=== PATIENT | female | born 1975 | race Caucasian/White ===

== ENCOUNTER 2017-09-14 10:59 | Emergency (ER) | payer BC, MEDICAID ==
[~2017-09-14] VITALS: Ht 172.7 cm; Wt 84.4 kg
[2017-09-14] MEDS ORDERED: PLEASE ENTER ALLERGIES MC SCH (12:00)
[2017-09-14] MEDS ORDERED: KETOROLAC 30 MG/1 ML IM ONE (12:00)
[2017-09-14] MEDS ORDERED: DIAZEPAM 5 MG TABLET PO ONE (12:00)
[2017-09-14] MEDS ORDERED: DIAZEPAM 5 MG TABLET ONE (12:05)
[2017-09-14] MEDS ORDERED: KETOROLAC 30 MG/1 ML ONE (12:05)
[2017-09-14 13:27] VITALS: BP 103/63
== END 2017-09-14 13:24 | disposition home or self-care (01) ==
LOC: ED 11:34
DX: M54.12 Radiculopathy, cervical region (principal)
CPT/HCPCS: 72050; 72072; 73030; 96372; 99284; J1885

== ENCOUNTER 2017-09-27 13:56 | Emergency (ER) | payer MEDICAID ==
[~2017-09-27] VITALS: Ht 175.3 cm; Wt 81.9 kg
[2017-09-27 13:58] VITALS: BP 138/85
[2017-09-27] MEDS ORDERED: HYDROmorphone 2 MG/ML, 1ML ONE (14:58)
[2017-09-27] MEDS ORDERED: DIAZEPAM 5 MG TABLET ONE (14:59)
[2017-09-27] MEDS ORDERED: DIAZEPAM 5 MG TABLET PO ONE (15:00)
[2017-09-27] MEDS ORDERED: HYDROmorphone 1 MG/ML, 1ML IM ONE (15:00)
== END 2017-09-27 16:17 | disposition home or self-care (01) ==
LOC: ED 15:45
DX: M54.2 Cervicalgia (principal); M54.12 Radiculopathy, cervical region
CPT/HCPCS: 96372; 99283; J1170

== ENCOUNTER → 2020-07-20 | Outpatient (CLI) | payer MEDICAID ==
[~2020-07-20] MED LIST: HYDR-3237 PO
== END | disposition home or self-care (01) ==
LOC: STAR 13:48
PROVIDERS: ATTEND Neurological Surgery
DX: Z20.822 Contact with and (suspected) exposure to COVID-19 (principal)
CPT/HCPCS: 87635

== ENCOUNTER 2020-07-26 05:33 | Observation (INO) | payer MEDICAID ==
[~2020-07-26] VITALS: Ht 174 cm; Wt 92.0 kg
[2020-07-26 06:07] VITALS: BP 105/75
[2020-07-26] MEDS ORDERED: EPINEPHRINE 1 MG/ML, 1ML ONE (06:17)
[2020-07-26] MEDS ORDERED: BUPIVACAINE/PF 0.5% ONE (06:17)
[2020-07-26] MEDS ORDERED: BACITRACIN 50,000 UNIT ONE (06:18)
[2020-07-26 06:20] LABS: HCG UR SG 1.031 (1.003-1.030)
[2020-07-26] MEDS ORDERED: CHLORHEXIDINE 15 ML UDC MM ONE (06:30)
[2020-07-26] MEDS ORDERED: LACTATED RINGERS 1,000 ML IV SCH (06:30)
[2020-07-26] MEDS ORDERED: MIDAZOLAM 1 MG/ML, 2ML ONE (06:31)
[2020-07-26] MEDS ORDERED: FENTANYL PF 100 MCG/2ML ONE ×4 (06:31→10:54)
[2020-07-26] MEDS ORDERED: CEFAZOLIN 1,000 MG ONE (06:52)
[2020-07-26] MEDS ORDERED: DEXAMETHASONE 4 MG/ML, 1ML ONE (06:52)
[2020-07-26] MEDS ORDERED: PROPOFOL 10 MG/ML, 20ML ONE (06:52)
[2020-07-26] MEDS ORDERED: ONDANSETRON 2MG/ML, 2ML ONE (06:52)
[2020-07-26] MEDS ORDERED: PROPOFOL 50 ML ONE ×3 (06:53→09:13)
[2020-07-26] MEDS ORDERED: SCOPOLAMINE 1MG PATCH TD SCH (07:00)
[2020-07-26] MEDS ORDERED: ONDANSETRON 2MG/ML, 2ML IVPush PRN (07:30)
[2020-07-26] MEDS ORDERED: PROMETHAZINE 25 MG/ML, 1ML IVPush PRN (07:30)
[2020-07-26] MEDS ORDERED: METHOCARBAMOL 1,000 MG in DEXTROSE 5% 100 ML IV PRN (07:30)
[2020-07-26] MEDS ORDERED: HYDROcodone/APAP 7.5-325MG/15ML UDC PO PRN (07:30)
[2020-07-26] MEDS ORDERED: KETOROLAC 30 MG/1 ML IVPush PRN (07:30)
[2020-07-26] MEDS ORDERED: HYDROmorphone 1 MG/ML, 1ML INJ IVPush PRN (07:30)
[2020-07-26] MEDS ORDERED: MEPERIDINE/PF 25MG/0.5ML IVPush PRN (07:30)
[2020-07-26] MEDS ORDERED: LORazepam 2 MG/ML, 1ML IVPush PRN (07:30)
[2020-07-26] MEDS ORDERED: SUCCINYLCHOLINE 20 MG/ML, 10ML ONE (07:45)
[2020-07-26] MEDS ORDERED: ROCURONIUM 10 MG/ML,10ML ONE (07:45)
[2020-07-26] MEDS ORDERED: HYDROcodone/APAP 7.5-325MG/15ML UDC ONE (10:24)
[2020-07-26] MEDS: FENTANYL PF 100 MCG/2ML IV PRN ×4 (10:27→11:19)
[2020-07-26] MEDS ORDERED: HYDROmorphone 1 MG/ML, 1ML INJ ONE (11:20)
[2020-07-26 11:40] VITALS: BP 103/66
[2020-07-26 12:10] VITALS: BP 94/61
[2020-07-26] MEDS ORDERED: ONDANSETRON 2MG/ML, 2ML IV PRN (12:30)
[2020-07-26] MEDS ORDERED: TIZANIDINE 2MG TABLET PO PRN (12:30)
[2020-07-26] MEDS ORDERED: DIPHENHYDRAMINE 25 MG CAPSULE PO PRN (12:30)
[2020-07-26] MEDS ORDERED: BISACODYL 10 MG SUPP PR PRN (12:30)
[2020-07-26] MEDS ORDERED: DIPHENHYDRAMINE 50 MG/ML, 1ML IVPush PRN (12:30)
[2020-07-26] MEDS ORDERED: OXYcodone IR 5MG TABLET PO PRN (12:30)
[2020-07-26] MEDS ORDERED: morphine SULFATE 10 MG/ML, 1ML IV PRN (12:30)
[2020-07-26] MEDS ORDERED: MAGNESIUM HYDROXIDE 8%, 30ML UDC PO PRN (12:30)
[2020-07-26] MEDS: NS + 20MEQ KCL 1,000 ML IV SCH ×2 (15:55→20:39)
[2020-07-26] MEDS: CEFAZOLIN PMX 1GM/50ML 50 ML IVPB SCH (16:13)
[2020-07-26] MEDS: HYDROcodone/APAP 5/325 TABLET PO PRN ×3 (16:14→21:07)
[2020-07-26 20:21] VITALS: BP 110/72
[2020-07-27 00:15] VITALS: BP 93/55
[2020-07-27] MEDS ORDERED: DIPHENHYDRAMINE 50 MG/ML, 1ML IVPush PRN (00:30)
[2020-07-27] MEDS: CEFAZOLIN PMX 1GM/50ML 50 ML IVPB SCH (00:31)
[2020-07-27] MEDS: HYDROcodone/APAP 5/325 TABLET PO PRN ×4 (01:19→10:57)
[2020-07-27 04:28] VITALS: BP 92/55
[2020-07-27 07:03] VITALS: BP 102/64
[2020-07-27] MEDS ORDERED: HYDR-3237 PO (08:22)
[2020-07-27] MEDS ORDERED: TIZA-106 PO (08:22)
[2020-07-27] MEDS ORDERED: SENNA/DOCUSATE TABLET PO SCH (09:00)
== END 2020-07-27 11:50 | disposition home or self-care (01) ==
LOC: OUT 05:33 → 4NE 11:36 → OUT 19:47 → 4NE 19:48 → DCLOUNGE 07-27 11:45
PROVIDERS: ADMIT Neurological Surgery; ATTEND Neurological Surgery
DX: M47.12 Other spondylosis with myelopathy, cervical region (principal); M50.30 Other cervical disc degeneration, unspecified cervical region; M40.202 Unspecified kyphosis, cervical region; M19.90 Unspecified osteoarthritis, unspecified site; M48.02 Spinal stenosis, cervical region; R29.810 Facial weakness; F17.210 Nicotine dependence, cigarettes, uncomplicated; Z79.899 Other long term (current) drug therapy
CPT/HCPCS: 22551; 22552; 22853; 36415; 72040; 81025; 86850; 86900; 95938; 95941; 96361; 96365; 96366; 96375; 97161; 97165; C1713; C1889; G0378; J0171; J0330; J0690; J1100; J2250; J2270; J2405; J2704; J2800; J3010; J3480; J7120; S0020